=== PATIENT | female | born 1980 | race Caucasian/White ===

== ENCOUNTER → 2018-09-21 | Outpatient (CLI) | payer OTHER ==
[~2018-09-21] MED LIST: AMOX500 PO; CEPH500 PO; CLIN300 PO; CYCL10 PO; HYDACE5 PO; IBUHYD PO; MIGRAVENT; NAPR500 PO; PRENATAL TABLE1 EAC2 PO; PROG100; RXHYDACE PO; TIZA4 PO
[2018-09-21 15:18] LABS: Bilirubin, Urine Neg (Neg); Blood, Urine 1+ (Neg); Glucose Qualitative, Urine Neg (Neg); Ketones, Urine Neg (Neg); Leukocyte Esterase, Urine 1+ (Neg); Nitrite, Urine Neg (Neg); Protein, Urine 1+ (Neg); Specific Gravity, Urine 1.015 (1.003-1.022); Urobilinogen, Urine NORM (Normal); pH, Urine 6.5 (5.0-8.0)
[2018-09-21 15:30] LABS: U Amphetamine Screen DETECTED; U Barbituate Screen Not Detected; U Benzodiazapine Screen Not Detected; U Buprenorphine Screen Not Detected; U Cannabinoids Screen DETECTED; U Cocaine Screen Not Detected; U Methadone Screen Not Detected; U Methamphetamine Screen DETECTED; U Opiates Screen Not Detected; U Oxycodone Screen Not Detected; U Phencyclidine Screen Not Detected; U Propoxyphene Screen Not Detected
[2018-09-21 15:35] LABS: Appearance, Urine Clear (Clear); Color, Urine Yellow (P-Yellow)
[2018-09-21 15:36] LABS: Bacteria Mod /hpf; Red Blood Cells, Urine 0-2 /hpf (0-2); Squamous Epithelial Cells Mod /hpf (Few)
== END | disposition home or self-care (01) ==
LOC: LAB SHORT 15:08 → LAB 15:08
PROVIDERS: Obstetrics & Gynecology
DX: Z34.82 Encounter for supervision of other normal pregnancy, second trimester (principal)
CPT/HCPCS: 81001; 87086; G0480

== ENCOUNTER → 2018-09-30 | Outpatient (CLI) | payer OTHER ==
[2018-10-03 15:05] LABS: CHLAMYDIA BY NAA Negative (Negative); GONOCOCCUS BY NAA Negative (Negative); TRICH VAG BY NAA Negative (Negative)
== END | disposition home or self-care (01) ==
LOC: LAB SHORT 15:48 → LAB 15:48
PROVIDERS: Advanced Practice Midwife
DX: Z11.3 Encounter for screening for infections with a predominantly sexual mode of transmission (principal)
CPT/HCPCS: 87491; 87591; 87661

== ENCOUNTER → 2018-11-11 | Outpatient (CLI) | payer OTHER | END | disposition home or self-care (01) | LOC: LAB 14:13 → LAB SHORT 14:13 | DX: Z34.80 Encounter for supervision of other normal pregnancy, unspecified trimester (principal) | CPT/HCPCS: 87081; 87653 ==

== ENCOUNTER 2018-12-06 09:42 | Inpatient (IN) | payer OTHER ==
[~2018-12-06] VITALS: Ht 165.1 cm; Wt 115.0 kg
[~2018-12-06 09:42] MED LIST changes: -CYCL10 PO; -NAPR500 PO; -PRENATAL TABLE1 EAC2 PO
--- NOTE | 2018-12-06 09:59 | NUR ---
HX POLY SUBSTANCE ABUSE THIS . LAST USED [facility] 4 MONTHS AGO, DAILY THC USER.
[2018-12-06 10:39] LABS: Source, Urine Clean Catch
[2018-12-06 11:10] LABS: Appearance, Urine Clear (Clear); Bilirubin, Urine Neg (Neg); Blood, Urine 1+ (Neg); Color, Urine Yellow (P-Yellow); Glucose Qualitative, Urine Neg (Neg); Ketones, Urine Neg (Neg); Leukocyte Esterase, Urine Neg (Neg); Nitrite, Urine Neg (Neg); Protein, Urine Neg (Neg); Specific Gravity, Urine 1.005 (1.003-1.022); Urobilinogen, Urine NORM (Normal)
[2018-12-06 11:40] LABS: Bacteria Not Seen /hpf; Red Blood Cells, Urine 0-2 /hpf (0-2); Squamous Epithelial Cells Few /hpf (Few); White Blood Cells, Urine Not Seen /hpf (0-5)
[2018-12-06 11:53] LABS: U Amphetamine Screen Not Detected; U Barbituate Screen Not Detected; U Benzodiazapine Screen Not Detected; U Buprenorphine Screen Not Detected; U Cannabinoids Screen DETECTED; U Cocaine Screen Not Detected; U Methadone Screen Not Detected; U Methamphetamine Screen Not Detected; U Opiates Screen Not Detected; U Oxycodone Screen Not Detected; U Phencyclidine Screen Not Detected; U Propoxyphene Screen Not Detected
[2018-12-06] MEDS ORDERED: PRENATAL TABLE1 EAC2 PO (13:53)
[2018-12-06] MEDS ORDERED: CYCL10 PO (13:53)
[2018-12-07 00:24] LABS: BASOPHILS ABSOLUTE AUTO 0.03 K/mm3 (0.00-0.23); BASOPHILS PERCENT AUTO 0 % (0-2); EOSINOPHILS ABSOLUTE AUTO 0.11 K/mm3 (0.00-0.68); EOSINOPHILS PERCENT AUTO 1 % (0-6); Hematocrit 31.6 % (33.0-51.0); Hemoglobin 10.2 g/dL (11.5-16.0); IMMATURE GRAN ABSOLUTE AUTO 0.28 K/mm3 (0.00-0.10); IMMATURE GRAN PERCENT AUTO 2 % (0-1); LYMPHOCYTES ABSOLUTE AUTO 2.61 K/mm3 (0.84-5.20); LYMPHOCYTES PERCENT AUTO 19 % (21-46); MONOCYTES ABSOLUTE AUTO 1.15 K/mm3 (0.16-1.47); MONOCYTES PERCENT AUTO 8 % (4-13); Mean Corpuscular HGB 30.9 pg (26.0-34.0); Mean Corpuscular HGB Conc 32.3 g/dL (31.5-36.5); Mean Corpuscular Volume 96 fL (80-100); Mean Platelet Volume 9.7 fL (9.1-12.4); NEUTROPHILS ABSOLUTE AUTO 9.51 K/mm3 (1.96-9.15); NEUTROPHILS PERCENT AUTO 70 % (41-73); Platelet Count 289 K/mm3 (150-400); RDW Coefficient Variation 14.6 % (11.7-14.2); RDW Standard Deviation 51.2 fL (35.1-46.3); White Blood Cell Count 13.69 K/mm3 (4.00-11.30)
--- NOTE | 2018-12-08 01:41 | NUR ---
ASSUMED CARE OF PATIENT AND RECIEVED REPORT FROM JUAN M MUSE AT 0100.
[2018-12-08 05:30] LABS: Hemoglobin 10.8 g/dL (11.5-16.0); Mean Corpuscular HGB Conc 32.7 g/dL (31.5-36.5); Mean Corpuscular Volume 95 fL (80-100); Mean Platelet Volume 8.9 fL (9.1-12.4); Platelet Count 272 K/mm3 (150-400); RDW Coefficient Variation 14.8 % (11.7-14.2); RDW Standard Deviation 51.5 fL (35.1-46.3); Red Blood Cell Count 3.48 M/mm3 (3.80-5.20); White Blood Cell Count 15.95 K/mm3 (4.00-11.30)
--- NOTE | 2018-12-08 07:25 | NUR ---
MOTHER SEEMS UNUSALLY SAD. SEEM FAMILY/FRIENDS UNSUPPORTIVE. WHEN RN ASKED IF SHE WILL HAVE ANY SUPPORT WITH THIS NB SHE STATED " I HAVE NO SUPPORT AND NO ONE, I WILL BE ON MY OWN WITH TAKING CARE OF HER." UNSURE OF WHO THE FOB IS, AND IS SAD THAT THIS NB WILL NOT HAVE A FATHER.
--- NOTE | 2018-12-08 11:45 | NUR ---
[facility] @0803 RN CALLED [facility]TA[facility] AND LEFT 1 MESSAGES FOR ANNE-MARIE TO CALL BACK REGARDING THIS CASE. NO CALL BACK @ 0955 RN CALLED AGAIN AND LEFT A SECOND VOICEMAIL @1000 RN CALLED [employer] TO SEE IF THEY CAN REACH JUAN M OLVERA INFORMED CASE WAS ASSIGNED TO KWASI JOE, PHONE NUMBER GIVEN , RN CALLED AND LEFT MESSAGE WITH KWASI JOE. THEN RN PERCEDED TO CALL HIS [employer]AURANT [employer]A MANAGER FAWAD BAKER, LEFT A MESSAGE ON HER PHONE TOO. @ 1100 RN CALLED KWASI AGAIN AND LEFT ANOTHER VOICEMAIL. STILL NO RESPONE. @ 1148 RN CALLED GABRIE[facility]A AGAIN LEFT ANOTHER VOICEAMIL. @1153 CALLED FAWAD BAKER AND LEFT A MESSAGE @ 0919 RN SPOKE WITH CORE REFERAL LADY NAMED ROSIBEL, SHE WAS INFORMED THAT THE SITUATION NEEDED IMMEDIATE ATTENTION AND PT NEEDS RESOURCES. STATED THAT SHE WILL CALL PT WITHIN A FEW HRS TO HELP SET HER UP FOR SUCCESS
--- NOTE | 2018-12-08 12:10 | NUR ---
@1100 RN WENT INTO ROOM TO TALK WITH PT ABOUT LIVING SITUATION, DRUG HISTORY AND TO HELP GAIN MORE INFORMATION ABOUT PT CIRCUMSTANCES THAT WILL EFFECT NB CARE. RN ASSERTAINED THAT THE MOTHER OR NB HAS BEEN IN AND OUT OF DRUGS HER WHOLE LIFE SINCE 18. A ABOUSIVE MAN PHYSICALLY AND MENTALLY THAT GAVE HER DRUGS AND SOLD HER BODY. STATED THAT SHE USED ON ON OFF DURING HER FIRST DAUGHTERS LIFE AND HER DAUGHTER AND HER HAVE A STRAINED RELATIONSHIP. SHE STATED THAT SHE KNOW 4 [employer] DEALERS THAT SHE COULD CALL ANYTIME SHE WANTS AND GET ANY DRUG SHE WANTS FOR FREE BUT DOESNT. STATES SHE IS SAD SHE DOESNT KNOW WHO THE FOB IS AND THAT THERE ARE 2 POSSIBLITIES, RN SUGGESTED GETTING HELP FROM CHILD SUPPORT AND SHE STATED SHE DOES NOT WANT TO BE ONE OF THOSE WOMEN. RN SUGGESTED SHE RETHINK THAT SINCE IT WILL HELP HER RAISE HER DAUGHTER. MOTHER OF NB ALSO TALKED ABOUT THAT SHE HAS NO SUPPORT FROM HER FAMILY OR THE CHIP SHE THINKS MIGHT BE THE DAD OUT OF THE 2. STATES NO ONE LOVES HER. RN ASKED PT WHAT SHE IS GOING TO DO WITH THE NB IF SHE RELAPSE AND IF SHE HAD A PLAN IN PLACE. PT STATES SHE WONT, BUT SHE WOULD GO TO HER MOTHER IF SHE DID. MOTHER OF NB ALSO STATES THAT SHE IS NOT SAFE ANYWHERE THAT THE DRUG DEALERS AND EXH ABUSIVE ALL KNOW WHERE SHE LIVES AND THAT IF THEY SHOW UP AND TELL HER TO GET INTO THE CAR SHE MUST GO IMMEDIATLY OR ELSE THEY WILL HARM HER FAMILY. RN SAID WHAT IF YOU HAVE THE NB WITH YOU WHEN THIS HAPPENS WHAT WILL HAPPEN THEN? SHE STATED SHE WOULD GO WITH HER MOTHER. RN FEARS THAT THIS PT DOES NOT HAVE THE MEANS TO SUCCESSED IN [place]ETY, AND MAY RELAPSE. RN FEELS THAT THIS CASE SHOULD BE OPEN FOR AWHILE AND TEST TO SEE IF PT STAYS CLEAN WITH RANDOM UTOX AND ALSO EVALUATE THE HOME PT IS PLANNING ON TAKING NB BACK TO. RN SUGGESTED COUNCLING TO HELP PT DEAL WITH DEPRESSION/ANIEXTY ISSUES.
[2018-12-08] MEDS ORDERED: NAPR500 PO (14:01)
--- NOTE | 2018-12-08 14:33 | NUR ---
ANNE-MARIE XIE HERE TO ASSESS PT, CORE CONTACTED PT HERE AT HOSPITAL AND CAME TO ROOM AND DROPPED OFF A BASSINET FOR BABY AND PT STATES THAT SOMEONE FROM [facility] WAS COMING TO HOSPITAL WELL TO HELP PT TALK TO ANNE-MARIE
--- NOTE | 2018-12-08 14:35 | NUR ---
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
== END 2018-12-08 16:55 | disposition home or self-care (01) | DRG 807 ==
LOC: BC 09:42 → OBS 09:42 → BC 09:43 → OBS 13:23 → BC 13:28
PROVIDERS: ADMIT Obstetrics & Gynecology
PROC: 3E033VJ Introduction of Other Hormone into Peripheral Vein, Percutaneous Approach (ICD-10-PCS; 2018-12-06)
PROC: 10E0XZZ Delivery of Products of Conception, External Approach (ICD-10-PCS; principal; 2018-12-07)
PROC: 0KQM0ZZ Repair Perineum Muscle, Open Approach (ICD-10-PCS; 2018-12-07)
PROC: 10907ZC Drainage of Amniotic Fluid, Therapeutic from Products of Conception, Via Natural or Artificial Opening (ICD-10-PCS; 2018-12-07)
PROC: 3E0R3BZ Introduction of Anesthetic Agent into Spinal Canal, Percutaneous Approach (ICD-10-PCS; 2018-12-07)
DX: O99.344 Other mental disorders complicating childbirth (principal); Z37.0 Single live birth; O70.1 Second degree perineal laceration during delivery; Z3A.39 39 weeks gestation of pregnancy; O75.89 Other specified complications of labor and delivery; M79.7 Fibromyalgia
CPT/HCPCS: 36415; 51702; 59025; 81001; 82947; 85025; 85027; 99213; G0480; J1885; J2001; J2590; J3010; J7120

== ENCOUNTER → 2022-05-30 | Outpatient (CLI) | payer OTHER ==
[~2022-05-30] MED LIST changes: +CYCL10 PO; +NAPR500 PO; +PRENATAL TABLE1 EAC2 PO
[2022-06-01 04:07] LABS: HBSAG SCREEN Negative (Negative); HCV ANTIBODY Non Reactive (Non Reactive)
[2022-06-01 07:07] LABS: HIV AB/P24 AG SCREEN Non Reactive (Non Reactive)
== END ==
LOC: LAB 13:22 → LAB SHORT 13:22
PROVIDERS: Obstetrics & Gynecology
DX: Z01.419 Encounter for gynecological examination (general) (routine) without abnormal findings (principal); Z11.3 Encounter for screening for infections with a predominantly sexual mode of transmission
CPT/HCPCS: 86592; 86803; 87340; 87389

== ENCOUNTER → 2023-05-21 | Outpatient (CLI) | payer OTHER ==
[2023-05-23 15:54] LABS: APTIMA MEDIA TYPE Unisex Swab; C. TRACHOMATIS BY TMA Negative (Negative); N. GONORRHOEAE BY TMA Negative (Negative); SPECIMEN SOURCE Vaginal; T. VAGINALIS BY TMA Negative (Negative)
== END ==
LOC: LAB SHORT 11:30 → LAB 11:30
PROVIDERS: Family Medicine
DX: N89.8 Other specified noninflammatory disorders of vagina (principal); Z11.3 Encounter for screening for infections with a predominantly sexual mode of transmission
CPT/HCPCS: 86592; 87491; 87591; 87661

== ENCOUNTER → 2023-05-26 | Outpatient (CLI) | payer OTHER ==
[2023-05-27 11:45] LABS: Bacterial Vaginosis PCR Negative (NEGATIVE); Candida Group, PCR NOT DETECTED (NOT DETECT); Candida glabrata-krusei, PCR DETECTED (NOT DETECT)
== END | disposition home or self-care (01) ==
LOC: LAB EV 12:22 → LAB SHORT 12:22
PROVIDERS: Obstetrics & Gynecology
DX: N76.0 Acute vaginitis (principal)
CPT/HCPCS: 87481; 87661; 87801

== ENCOUNTER → 2024-03-04 | Outpatient (CLI) | payer OTHER ==
[2024-03-05 07:35] LABS: Bacterial Vaginosis PCR Negative (NEGATIVE); Candida glabrata-krusei, PCR NOT DETECTED (NOT DETECT)
[2024-03-05 07:59] LABS: Candida Group, PCR DETECTED (NOT DETECT)
== END | disposition home or self-care (01) ==
LOC: LAB 12:19 → LAB SHORT 12:19
PROVIDERS: Nurse Practitioner Family
DX: R30.0 Dysuria (principal)
CPT/HCPCS: 87077; 87086; 87186; 87481; 87661; 87801